=== PATIENT | male | born 1960 | race Caucasian/White ===

== ENCOUNTER 2018-01-07 18:55 | Observation (INO) | payer MEDICARE, MEDICAID ==
[2018-01-07] MEDS ORDERED: Nitroglycerin 0.4 MG Tab.SL SL ONE (19:14)
[2018-01-07] MEDS ORDERED: Aspirin 81 MG Tab.Chew PO ONE (19:14)
[2018-01-07] MEDS ORDERED: Morphine 2 MG/ML Syringe IVPUSH ONE (19:34)
[2018-01-07] MEDS ORDERED: Sodium Chloride 0.9% 500 ML IV ONE (19:34)
[2018-01-07] MEDS ORDERED: Ondansetron 4 MG/2 ML SDV IVPUSH ONE (19:41)
[2018-01-07] MEDS ORDERED: diphenhydrAMINE 50 MG/ML SDV IVPUSH ONE (19:55)
[2018-01-07] MEDS ORDERED: GI Cocktail Oral Solution 30 ML PO ONE (20:01)
--- NOTE | 2018-01-08 02:47 | ER ---
DATE OF SERVICE: 01/07/2018 HPI: A 57-year-old male who comes in by ambulance with complaints of chest pain that started about 2 hours ago. He describes this as more of a pressure than a pain. He states he just feels a kind of block. He describes that his pain has a tick-like sensation to it, he tells me that is the best he can describe it. The pressure is constant. He states he really is not as much pain, it is as just some pressure. He is not nauseated. He has no problems with neck or arm pain. The patient has not been coughing or having any problems with shortness of breath. He denies any problems of heart disease. PAST MEDICAL HISTORY: Again, past medical history includes hypertension, type 2 diabetes. The patient has history of a blood clot in his left lower leg that did require fasciotomy. OBJECTIVE: GENERAL APPEARANCE: The patient is awake and alert. No respiratory distress. VITAL SIGNS: Initially revealed blood pressure 128/81, O2 sats are in the upper 90s. INITIAL TREATMENT PLAN: Four baby aspirin were given to the patient p.o., and within a few minutes, we gave him one nitroglycerin sublingually. This did not change or decrease his chest discomfort and he developed a headache from it. The patient's blood pressure dropped a little to 114/52. Normal saline was started, giving 1 L in bolus form. The patient was given Zofran 4 mg IV and this did seem to help with the nausea a little bit. Lab work includes a CBC which showed elevated eosinophils, otherwise unremarkable. An EKG shows normal sinus rhythm. Comprehensive metabolic panel is unremarkable. Troponin is normal or negative. At this point, the patient was given Benadryl 25 mg IV and a GI cocktail with minimal relief of his chest discomfort, and he had some itching symptoms which the Benadryl resolved. DIAGNOSIS: Chest pain with a negative initial cardiac workup. TREATMENT PLAN: We will admit the patient for observation and do serial troponins overnight. He will be on telemetry. The patient was also given 2 mg of morphine in the ER early on in the visit, which did not seem to change his symptoms at all either. CRS/MODL /[id number] SASHA
--- NOTE | 2018-01-08 07:18 | HP ---
DATE OF SERVICE: 01/07/2018 HISTORY OF PRESENT ILLNESS: He was admitted for observation. From the emergency room, he came in by ambulance with complaints of chest pain, chest pressure with a negative initial workup. Upon arriving on the floor, the patient's blood pressure is stable at 132/75. He states he just feels a little blah. He is really not having any pain, just a little pressure or discomfort and minimal nausea. He states the nausea is going away. The patient has received 1 L of normal saline and he will continue on the fluids overnight. In the emergency room, he was given nitroglycerin x1, four baby aspirin, Zofran 4 mg IV , Benadryl 25 mg IV, and a GI cocktail as well as morphine 2 mg IV. None of this had much of an effect on the patient's symptoms other than the itching he had on his face and right hand, resolved with the Benadryl that was given after his CBC showed elevated eosinophils. PAST MEDICAL HISTORY: Blood clot to left lower leg requiring fasciotomy; history of hypertension; history of diabetes type 2, non-insulin dependent. 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 OBJECTIVE: GENERAL: The patient is awake, slightly tired, in no obvious discomfort. Physical exam, oral mucous membranes moist. Tonsils are not enlarged or injected. Pharynx not inflamed. NECK: Supple. LUNGS: Clear. CARDIAC: Heart sounds distinct without murmurs. SKIN: Warm and dry. ABDOMEN: Soft, protuberant, nontender to palpation. STUDIES: Chest x-ray was obtained showing what looks like a small infiltrate in the right lower lobe, although the patient's CBC is normal as far as infection and it does not correlate with his area of discomfort. TREATMENT PLAN: We will monitor the patient overnight doing a troponin at midnight and again at 8 a.m. He will continue on IV fluids at 125 mL/h. Vital signs will be watched closely every hour x2, then every 2 hours x2, then every 4 hours. He is to be up for bathroom privileges with assist only. He can also use a urinal and he will be on telemetry. CRS/MODL SASHA
--- NOTE | 2018-01-08 08:00 | CR ---
AP PORTABLE CHEST, 01/07/18 Comparison is made to a prior exam dated 05/24/15. Patient has taken a poor inspiration. The heart size is normal. There is minimal pleural thickening in both hemithoraces. The lungs are otherwise clear. No pneumothorax. No pleural effusions. No areas of consolidation. [id number] [facility]
--- NOTE | 2018-01-09 01:59 | DISCH ---
HPI: This 57-year-old male was admitted through the emergency room last evening for chest pain. He has been asymptomatic since midnight. His serial troponin levels have all been negative x3. The patient states he feels much better this morning. He did eat a good breakfast. He is not having any symptoms at all. PHYSICAL EXAMINATION: VITAL SIGNS: Taken this morning reveal a blood pressure of 110/72, pulse of 66, O2 sats are 97% on room air. Physical exam, lungs are clear. CARDIAC: Heart sounds distinct without murmurs. SKIN: Warm and dry. There is no abdominal discomfort with palpation today. TREATMENT PLAN: The patient will be discharged to home. He is to resume his current medications, and I advised the patient that he should follow up with his primary care provider over the next few days for a recheck. The patient has no further questions. CHANDRAKANT/MIKE /[id number]
== END 2018-01-08 11:00 | disposition home or self-care (01) ==
LOC: LB.ED 18:55 → LB.MS 20:45 → LB.ED 20:45
PROVIDERS: ADMIT Physician Assistant; ATTEND Physician Assistant
DX: R07.89 Other chest pain (principal); I10 Essential (primary) hypertension; E11.9 Type 2 diabetes mellitus without complications
CPT/HCPCS: 36415; 71045; 80053; 82150; 83690; 84484; 85025; 93005; 96361; 96374; 96375; 99285-25; A0425; A0429; A9270-GY; J1200; J2270; J2405; J7040

== ENCOUNTER 2020-12-03 14:24 | Emergency (ER) | payer MEDICARE, MEDICAID ==
[2020-12-03] MEDS ORDERED: Sodium Chloride 0.9% 10 ML Syringe FLUSH PRN (14:52)
--- NOTE | 2020-12-03 14:56 | EDM.PDOC ---
ED HPI GENERAL MEDICAL PROBLEM - General Chief Complaint: Diabetic Complaint Stated Complaint: HIGH BLOOD SUGAR Time Seen by Provider: 12/03/20 14:55 Source of Information: Reports: Patient History Limitations: Reports: No Limitations - History of Present Illness INITIAL COMMENTS - FREE TEXT/NARRATIVE: patient with a h/o obesity and T2DM who presented to the ER with a c/o frequent urination and high blood sugar. Reports he is on a oral Onglyza,, but doesn't watch his diet. Drinks soda almost daily. Reports frequent urination, and increase thirst. No dizziness, no CP, no abd pain, no fever or chills. Hasn't checked his blood sugars for several months per his record. Onset: Gradual Duration: Week(s): (4) Left Hip Pain Score (Numeric/FACES): 4 - Related Data Allergies Allergy/AdvReac Type Severity Reaction Status Date / Time No Known Allergies Allergy Verified 12/03/20 14:39 Home Meds: Home Meds Aspirin [Adult Low Dose Aspirin EC] 81 mg PO DAILY 12/03/13 [History] Lisinopril/Hydrochlorothiazide [Lisinopril-Hctz 20-12.5 mg Tab] 1 each PO DAILY 12/03/13 [History] Metoprolol Succinate 50 mg PO DAILY 12/03/13 [History] traMADol [Ultram] 50 mg PO TID 12/03/13 [History] Past Medical History HEENT History: Reports: Other (See Below) Other HEENT History: wears glasses Cardiovascular History: Reports: Blood Clots/VTE/DVT, Hypertension Respiratory History: Reports: Asthma, Bronchitis, Recurrent, COPD, Other (See Below) Other Respiratory History: Emphysema Musculoskeletal History: Reports: Fracture, Other (See Below) Other Musculoskeletal History: Fractures of Tibia and Fibula at 27 yeras old Psychiatric History: Reports: Anxiety, Depression Endocrine/Metabolic History: Reports: Diabetes, Type II - Past Surgical History Dermatological Surgical History: Reports: Skin Graft Social & Family History - Caffeine Use Caffeine Use: Reports: Coffee ED ROS GENERAL - Review of Systems Review Of Systems: See Below Constitutional: Reports: No Symptoms HEENT: Reports: No Symptoms Respiratory: Reports: No Symptoms Cardiovascular: Reports: No Symptoms Endocrine: Reports: High Glucose, Polyuria GI/Abdominal: Reports: No Symptoms Musculoskeletal: Reports: No Symptoms Skin: Reports: No Symptoms Neurological: Reports: No Symptoms ED EXAM GENERAL NO PERIP PULSE - Physical Exam Exam: See Below Exam Limited By: No Limitations General Appearance: Alert, WD/WN, No Apparent Distress Eye Exam: Bilateral Eye: EOMI Respiratory/Chest: No Respiratory Distress Cardiovascular: Normal Peripheral Pulses GI/Abdominal: Normal Bowel Sounds, Soft Back Exam: Normal Inspection Neurological: Alert, Oriented, No Motor/Sensory Deficits Course - Vital Signs Last Recorded V/S: Last Vital Signs Temp 36.2 C 12/03/20 14:39 Pulse 120 H 12/03/20 14:39 Resp 20 12/03/20 14:39 BP 149/91 H 12/03/20 14:39 Pulse Ox 96 12/03/20 14:39 - Orders/Labs/Meds Orders: Active Orders 24 hr Category Date Time Status UA RFX ANTHONY AND CULT IF INDIC [URIN] Urgent Lab 12/03/20 14:55 Ordered Sodium Chloride 0.9% [Normal Saline] 1,000 ml Med 12/03/20 15:00 Active IV ASDIRECTED Sodium Chloride 0.9% [Saline Flush] Med 12/03/20 14:52 Active 10 ml FLUSH ASDIRECTED PRN metFORMIN [Glucophage XR] Med 12/03/20 18:00 Ordered 1,000 mg PO WITHDINNER Saline Lock Insert [OM.PC] Routine Oth 12/03/20 14:52 Ordered Medication Orders Sodium Chloride (Normal Saline) 1,000 mls @ 500 mls/hr IV ASDIRECTED NUPUR Last Admin: 12/03/20 15:07 Dose: 500 mls/hr Documented by: LUIS E Sodium Chloride (Sodium Chloride 0.9% 10 Ml Syringe) 10 ml FLUSH ASDIRECTED PRN PRN Reason: Keep Vein Open Labs: Laboratory Tests 12/03/20 12/03/20 12/03/20 Range/Units 14:36 15:00 15:02 WBC 9.8 (4.0-11.0) K/uL RBC 5.00 (4.50-6.50) M/uL Hgb 14.5 (13.0-18.0) g/dL Hct 40.1 (40.0-54.0) % MCV 80 (76-96) fL MCH 29.0 (27.0-32.0) pg MCHC 36.2 H (31.0-35.0) g/dL RDW 12.9 (11.0-16.0) % Plt Count 257 (150-400) K/uL MPV 9.8 (6.0-10.0) fL Sodium (136-145) mmol/L Potassium (3.5-5.1) mmol/L Chloride (98-107) mmol/L Carbon Dioxide (21.0-32.0) mmol/L Anion Gap (5.0-15.0) mmol/L BUN (8-26) mg/dL Creatinine (0.70-1.30) mg/dL Est Cr Clr Drug Dosing mL/min Estimated GFR (MDRD) (>60) MLS/MIN BUN/Creatinine Ratio (6-25) Glucose (74-100) mg/dL POC Glucose 375 H (74-110) mg/dL Hemoglobin A1c (< 5.7) % Calcium (8.5-10.1) mg/dL Ketones Negative (NEGATIVE) 12/03/20 12/03/20 Range/Units 15:02 15:02 WBC (4.0-11.0) K/uL RBC (4.50-6.50) M/uL Hgb (13.0-18.0) g/dL Hct (40.0-54.0) % MCV (76-96) fL MCH (27.0-32.0) pg MCHC (31.0-35.0) g/dL RDW (11.0-16.0) % Plt Count (150-400) K/uL MPV (6.0-10.0) fL Sodium 133 L (136-145) mmol/L Potassium 3.8 (3.5-5.1) mmol/L Chloride 95 L (98-107) mmol/L Carbon Dioxide 26.4 (21.0-32.0) mmol/L Anion Gap 15.4 H (5.0-15.0) mmol/L BUN 24 D (8-26) mg/dL Creatinine 1.14 (0.70-1.30) mg/dL Est Cr Clr Drug Dosing 75.23 mL/min Estimated GFR (MDRD) > 60 (>60) MLS/MIN BUN/Creatinine Ratio 21.1 (6-25) Glucose 385 H D (74-100) mg/dL POC Glucose (74-110) mg/dL Hemoglobin A1c 10.1 H (< 5.7) % Calcium 9.8 (8.5-10.1) mg/dL Ketones (NEGATIVE) Meds: Medications Generic Name Dose Route Start Last Admin Trade Name Freq PRN Reason Stop Dose Admin Sodium Chloride 1,000 mls @ 500 mls/hr 12/03/20 15:00 12/03/20 15:07 Normal Saline IV 500 mls/hr ASDIRECTED NUPUR Administration Sodium Chloride 10 ml 12/03/20 14:52 Sodium Chloride 0.9% 10 Ml Syringe FLUSH ASDIRECTED PRN Keep Vein Open - Re-Assessments/Exams Free Text/Narrative Re-Assessment/Exam: labs were ordered significant for HgbA1c 10.2 Blood sugar 370 no ketones in blood IVF was given discussed with the patient the importance of following a diabetic diet and being compliant to his meds. Departure - Departure Time of Disposition: 15:52 Disposition: Home, Self-Care 01 Condition: Good Clinical Impression: Hyperglycemia, Uncontrolled type 2 diabetes mellitus - Discharge Information *PRESCRIPTION DRUG MONITORING PROGRAM REVIEWED*: Not Applicable *COPY OF PRESCRIPTION DRUG MONITORING REPORT IN PATIENT FATOUMATA: Not Applicable Instructions: Type 2 Diabetes Mellitus, Diagnosis, Adult, Solf-[id number], Diabete s and Exercise-SportsMed Referrals: PCP,None [Primary Care Provider] - Forms: ED Department Discharge Sepsis Event Note (ED) - Evaluation Sepsis Screening Result: No Definite Risk - Focused Exam Vital Signs: Vital Signs Temp Pulse Resp BP Pulse Ox 12/03/20 14:39 36.2 C 120 H 20 149/91 H 96 - Problem List & Annotations (1) Uncontrolled type 2 diabetes mellitus SNOMED Code(s): 213353985, 602654016 Code(s): E11.65 - TYPE 2 DIABETES MELLITUS WITH HYPERGLYCEMIA Status: Acute Priority: Medium Current Visit: Yes Qualifiers: Glycemic state: with hyperglycemia Qualified Code(s): E11.65 - Type 2 diabetes mellitus with hyperglycemia - Problem List Review Problem List Initiated/Reviewed/Updated: Yes - My Orders Last 24 Hours: My Active Orders 12/03/20 14:52 Sodium Chloride 0.9% [Saline Flush] 10 ml FLUSH ASDIRECTED PRN Saline Lock Insert [OM.PC] Routine 12/03/20 14:55 UA RFX ANTHONY AND CULT IF INDIC [URIN] Urgent 12/03/20 15:00 Sodium Chloride 0.9% [Normal Saline] 1,000 ml IV ASDIRECTED 12/03/20 18:00 metFORMIN [Glucophage XR] 1,000 mg PO WITHDINNER - Assessment/Plan Last 24 Hours: My Active Orders 12/03/20 14:52 Sodium Chloride 0.9% [Saline Flush] 10 ml FLUSH ASDIRECTED PRN Saline Lock Insert [OM.PC] Routine 12/03/20 14:55 UA RFX ANTHONY AND CULT IF INDIC [URIN] Urgent 12/03/20 15:00 Sodium Chloride 0.9% [Normal Saline] 1,000 ml IV ASDIRECTED 12/03/20 18:00 metFORMIN [Glucophage XR] 1,000 mg PO WITHDINNER Plan: - start taking metformin once daily as prescribed, in addition to you current meds - follow up with your PCP in 5-7 days - recommend to avoid soda drinks and sugar rich food - increase activity slowly and exercise regularly to start loosing weight
[2020-12-03] MEDS: Sodium Chloride 0.9% 1,000 ML IV SCH (15:07)
[2020-12-03 15:18] LABS: HEMOGLOBIN A1C 10.1 % (< 5.7)
[2020-12-03] MEDS: metFORMIN 500 MG Tab.ER PO SCH (16:00)
[2020-12-03] MEDS ORDERED: metFORMIN 1,000 MG Tab ONE (16:15)
[2020-12-03] MEDS: metFORMIN 500 MG Tab.ER ONE ×2 (16:52→16:53)
[2020-12-03] MEDS: metFORMIN 1,000 MG Tab ONE (16:52)
== END 2020-12-03 16:30 | disposition home or self-care (01) ==
LOC: LB.ED 14:24
DX: E11.65 Type 2 diabetes mellitus with hyperglycemia (principal); I10 Essential (primary) hypertension; J44.9 Chronic obstructive pulmonary disease, unspecified; Z79.82 Long term (current) use of aspirin; Z79.899 Other long term (current) drug therapy
CPT/HCPCS: 36415; 80048; 81003; 82009; 82947; 83036; 85027; 99284; A9270; J7030

== ENCOUNTER 2022-04-18 16:28 | Emergency (ER) | payer MEDICARE, MEDICAID ==
[2022-04-18] MEDS: Acetaminophen 500 MG Tab PO ONE (17:43)
== END 2022-04-18 19:45 | disposition home or self-care (01) ==
LOC: LB.ED 16:28
DX: U07.1 COVID-19 (principal); E11.9 Type 2 diabetes mellitus without complications; Z79.82 Long term (current) use of aspirin; Z79.899 Other long term (current) drug therapy; Z79.84 Long term (current) use of oral hypoglycemic drugs
CPT/HCPCS: 36415; 80053; 85025; 99283; A9270-GY; U0002